=== PATIENT | female | born 1980 | race Two or more races ===

== ENCOUNTER 2024-11-06 11:16 | Outpatient (REF) | payer BC, SELFPAY ==
[2024-11-06 11:40] LABS: Basophils Percent Auto 0.5 % (0.2-2.0); Eosinophils Absolute Auto 0.2 10^3/uL (0.0-0.7); Eosinophils Percent Auto 5.6 % (0.9-7.0); Hematocrit 27.3 % (36.0-48.0); Hemoglobin 8.4 g/dL (12.0-16.0); Immature Granulocytes Abs Auto 0.01 10^3/uL (0.00-0.03); Immature Granulocytes Pct Auto 0.3 % (0.0-0.5); Lymphocytes Absolute Auto 1.4 10^3/uL (1.2-3.8); Lymphocytes Percent Auto 37.6 % (20.5-60.0); Mean Corpuscular HGB Conc 30.8 g/dL (29.9-35.2); Mean Corpuscular Hemoglobin 25.5 pg (26.7-34.0); Mean Corpuscular Volume 82.7 fL (81.0-99.0); Mean Platelet Volume 8.8 fL (9.5-13.5); Monocytes Absolute Auto 0.4 10^3/uL (0.3-0.8); Monocytes Percent Auto 11.6 % (1.7-12.0); Neutrophils Absolute Auto 1.7 10^3/uL (1.4-6.5); Neutrophils Percent Auto 44.4 % (43.0-75.0); Platelet Count 312 10^3/uL (150-450); Red Cell Distribution Width 13.2 % (11.0-15.0); White Blood Count 3.8 10^3/uL (4.0-11.0)
[2024-11-06 11:54] LABS: Alanine Aminotransferase 48 U/L (14-59); Estimated GFR (African America >60 (>=60 mL/min/1.73m^2); Estimated GFR (Non-African Ame >60 (>=60 mL/min/1.73m^2)
== END 2024-11-06 11:17 | disposition home or self-care (01) ==
LOC: LAB 11:16
DX: T81.49XA Infection following a procedure, other surgical site, initial encounter (principal)
CPT/HCPCS: 36415; 82565; 84460; 85025

== ENCOUNTER 2024-11-12 11:17 | Outpatient (REF) | payer BC, SELFPAY ==
[2024-11-12 11:53] LABS: Basophils Percent Auto 0.6 % (0.2-2.0); Eosinophils Absolute Auto 0.2 10^3/uL (0.0-0.7); Eosinophils Percent Auto 5.7 % (0.9-7.0); Hematocrit 28.7 % (36.0-48.0); Hemoglobin 8.6 g/dL (12.0-16.0); Lymphocytes Absolute Auto 1.4 10^3/uL (1.2-3.8); Lymphocytes Percent Auto 38.7 % (20.5-60.0); Mean Corpuscular Hemoglobin 24.4 pg (26.7-34.0); Mean Corpuscular Volume 81.5 fL (81.0-99.0); Mean Platelet Volume 9.2 fL (9.5-13.5); Monocytes Absolute Auto 0.5 10^3/uL (0.3-0.8); Monocytes Percent Auto 15.4 % (1.7-12.0); Neutrophils Absolute Auto 1.4 10^3/uL (1.4-6.5); Neutrophils Percent Auto 39.6 % (43.0-75.0); Platelet Count 312 10^3/uL (150-450); Red Blood Count 3.52 10^6/uL (4.20-5.40); Red Cell Distribution Width 13.1 % (11.0-15.0); White Blood Count 3.5 10^3/uL (4.0-11.0)
[2024-11-12 12:11] LABS: Alanine Aminotransferase 20 U/L (14-59); Estimated GFR (African America >60 (>=60 mL/min/1.73m^2); Estimated GFR (Non-African Ame >60 (>=60 mL/min/1.73m^2)
--- OUTSIDE RECORDS SUMMARY | 2024-11-15 14:59 | XMS_ITS | Clinical Summary ---
Author Organization [facility] Address [address] [place] [address] Care Team Providers Care Outside Machinist Name Role Phone Unallocated, Noms Provider Primary Care Provi lovely Social History Tobacco Use Types Packs/Day Years Used Date Smoking Tobacco: Never Assessed Comments Unknown Sex and Gender Information Value Date Recorded Sex Assigned at Not on file Legal Sex Female 7:11 PM EDT Gender Identity Not on file Sexual Orientation Not on file Last Filed Vital Signs Vital Sign Reading Time Taken Comments Blood Pressure 98/62 10/03/2020 12:00 PM EDT Pulse - - Temperature - - Respiratory Rate - - Oxygen Saturation - - Inhaled Oxygen Concentration - - Weight 65.4 kg (144 lb 3.2 oz) 10/03/2020 12:00 PM EDT Height 160 cm (5' 3 ) 10/03/2020 12:00 PM EDT Body Mass Index 25.54 10/03/2020 12:00 PM EDT Plan of Treatment Not on file Care Teams Outside Machinist Relationship Specialty Start Date End Date Unallocated, Noms [facility] [address] PCP - General Family Medicine 10/16/24
--- OUTSIDE RECORDS SUMMARY | 2024-11-15 15:00 | XMS_ITS | Clinical Summary ---
Author Organization [facility] Address [address] [place] [address] Phone Care Team Providers Care Planning Director Name Role Phone Unavailable Primary Care Provider Unavailabl e Social History Tobacco Use Types Packs/Day Years Used Date Smoking Tobacco: Never Assessed Comments Unknown Sex and Gender Information Value Date Recorded Sex Assigned at Not on file Legal Sex Female 6:14 PM EST Gender Identity Not on file Sexual Orientation Not on file Plan of Treatment Not on file
--- OUTSIDE RECORDS SUMMARY | 2024-11-15 15:00 | XMS_ITS | Encounter Summary ---
Author Organization [facility] Address [address] [place] [address] Phone Care Team Providers Care Health Record Technician Name Role Phone Unavailable Primary Care Provider Unavailabl e Encounter Details Date Type Department Care Team (Late st Contact Info) Description 10/10/2015 Orders Only [facility] [address] [place] [place] [address] Conversion, Onbase Social History Tobacco Use Types Packs/Day Years Used Date Smoking Tobacco: Never Assessed Comments Unknown Sex and Gender Information Value Date Recorded Sex Assigned at Not on file Legal Sex Female 6:14 PM EST Gender Identity Not on file Sexual Orientation Not on file documented as of this encounter Plan of Treatment Scheduled Orders Name Type Priority Associated Diagnoses Orde r Schedule OUTSIDE LAB SCAN Lab Ordered: 10/10/2015 documented as of this encounter Visit Diagnoses Not on filedocumented in this encounter
--- OUTSIDE RECORDS SUMMARY | 2024-11-15 15:00 | XMS_ITS | Encounter Summary ---
Author Organization [facility] Address [facility] [place] [address] Care Team Providers Care Exhibition Organiser Name Role Phone Unavailable Primary Care Provider Unavailabl e Source Comments In the event this information is protected by the Federal Confidentiality of Alcohol and Drug AbusePatient Records regulations: The Federal rules restrict any use of the information to criminally investigate or prosecute any alcohol or drug abuse patient.[facility] Reason for Visit * Reason Comments CoPat Management FOR IDC USE ONLY Encounter Details Date Type Department Care Team (Late st Contact Info) Description 10/19/2024 Telephone [facility] [address] [phone] Paramjit Odell MD [address] [phone] CoPat Management (FOR IDC USE ONLY) Social History Tobacco Use Types Packs/Day Years Used Date Smoking Tobacco: Never Assessed Area Deprivation Index Answer Date Santos rded National Score (1-100), lower number is lower ri sk Not on file 05/18/2020 State Score (1-10), lower number is lower risk N ot on file 05/18/2020 Data from: https://www.neighborhoodatlas.medicine.[facility].edu/. Last address used for calculation Not on file 05/18/2020 Comments Unknown Sex and Gender Information Value Date Recorded Sex Assigned at Not on file Legal Sex Female 9:58 AM EST Gender Identity Not on file Sexual Orientation Not on file documented as of this encounter Miscellaneous Notes * Telephone Encounter - Cait Del Rosario LPN - 11/12/2024 2:27 PM EDT November 12 labs reviewed, no changes The tubes were taken to [facility] lab The results were attached to the M drive * Telephone Encounter - Cait Del Rosario LPN - 11/06/2024 1:15 PM EDT November 06 labs reviewed, no changes The tubes were taken to [facility] lab The results were attached to the M drive * Telephone Encounter - Cait Del Rosario LPN - 10/29/2024 3:38 PM EDT October 29 labs reviewed, no changes The tubes were taken to [facility] lab The results were attached to the M drive * Telephone Encounter - Isela Mg RN - 10/19/2024 2:40 PM EDTSummary: COPAT ACTION-FOR IDC USE ONLY RS- CCOC DX: L SPINE MSSA TX: ANCEF 2GM IV Q8 EOT: 11-29-24 LABS: CBC/D ALT CREAT QMON FU: PRN . documented in this encounter Plan of Treatment Not on file documented as of this encounter Visit Diagnoses Not on filedocumented in this encounter
--- OUTSIDE RECORDS SUMMARY | 2024-11-15 15:00 | XMS_ITS | Encounter Summary ---
Author Organization [facility] Address [address] [place] [address] Phone Care Team Providers Care Film Historian Name Role Phone Unavailable Primary Care Provider Unavailabl e Encounter Details Date Type Department Care Team (Late st Contact Info) Description 10/15/2015 Orders Only [facility] [address] [place] [address] Conversion, Onbase Social History Tobacco Use Types [...] r Schedule OUTSIDE LAB SCAN Lab Ordered: 10/15/2015 documented as of this encounter Visit Diagnoses Not on filedocumented in this encounter
--- OUTSIDE RECORDS SUMMARY | 2024-11-15 15:00 | XMS_ITS | Clinical Summary ---
Author Organization [facility] Address [address] [place] [address] Care Team Providers Care Felled Seam Operator Chainstitch Name Role Phone Unavailable Primary Care Provider Unavailabl e Encounters Date Type Department Care Team Description 10/19/2024 Telephone [facility] [address] [phone] Paramjit Odell MD CoPat Management (FOR IDC USE ONLY) from Last 3 Months Social History Tobacco Use Types Packs/Day Years Used Date Smoking Tobacco: Never Assessed Area Deprivation Index Answer Date Santos rded National Score (1-100), lower number is lower ri sk Not on file 05/18/2020 State Score (1-10), lower number is lower risk N ot on file 05/18/2020 Data from: https://www.neighborhoodatlas.medicine.[facility].edu/. Last address used for calculation Not on file 05/18/2020 Comments Unknown Sex and Gender Information Value Date Recorded Sex Assigned at Not on file Legal Sex Female 9:58 AM EST Gender Identity Not on file Sexual Orientation Not on file Plan of Treatment Health Maintenance Due Date Last Done Comments Anxiety Screening 09/06/1999 Depression Screening 09/06/1999 HIV Screening 09/06/1999 Hepatitis C Screening 09/06/1999 DTaP,Tdap,Td Vaccine (1 - Tdap) 2000 Hepatitis B Vaccine (1 of 3 - 19+ 3-dose series) 09/05 Cervical Cancer Screening 2002 Mammogram Screening 2021 Covid-19 Vaccine ( - season) 2024 Influenza Vaccine (Season Ended) 2025 Insurance BLUE CARD PPO OOS
== END 2024-11-12 11:18 | disposition home or self-care (01) ==
LOC: LAB 11:17
DX: A49.02 Methicillin resistant Staphylococcus aureus infection, unspecified site (principal)
CPT/HCPCS: 36415; 82565; 84460; 85025

== ENCOUNTER 2024-11-19 11:04 | Outpatient (REF) | payer BC, SELFPAY ==
--- OUTSIDE RECORDS SUMMARY | 2024-11-19 11:14 | XMS_ITS | Encounter Summary ---
Author Organization [facility] Address [address] [place] [address] Phone Care Team Providers Care Residential Housekeeper Name Role Phone Unavailable Primary Care Provider Unavailabl e Encounter Details Date Type Department Care Team (Late st Contact Info) Description 10/15/2015 Orders Only [facility] [address] [place] [address] Conversion, Onbase Social History Tobacco Use Types [...]
--- OUTSIDE RECORDS SUMMARY | 2024-11-19 11:14 | XMS_ITS | Encounter Summary ---
Author Organization [facility] Address [facility] [place] [address] Care Team Providers Care Rapier Insertion Loom Fixer Name Role Phone Unavailable Primary Care Provider Unavailabl e Source Comments In the event this information is protected by the Federal Confidentiality of Alcohol and Drug AbusePatient Records regulations: The Federal rules restrict any use of the information to criminally investigate or prosecute any alcohol or drug abuse patient.[facility] Reason for Visit * Reason Comments CoPat Management FOR IDC USE ONLY Encounter Details Date Type Department Care Team (Late st Contact Info) Description 10/19/2024 Telephone [facility] [address] [phone] Paramjit Odell MD [address] [phone] CoPat Management (FOR IDC USE ONLY) Social History Tobacco Use Types Packs/Day Years Used Date Smoking Tobacco: Never Assessed Area Deprivation Index Answer Date Santos rded National Score (1-100), lower number is lower ri sk Not on file 05/18/2020 State Score (1-10), lower number is lower risk N ot on file 05/18/2020 Data from: https://www.neighborhoodatlas.medicine.[facility].edu/. Last address used for calculation [...] no changes The tubes were taken to [facility] lab The results were attached to the M drive * Telephone Encounter - Cait Del Rosario LPN - 11/06/2024 1:15 PM EDT November 06 labs reviewed, no changes The tubes were taken to [facility] lab The results were attached to the M drive * Telephone Encounter - Cait Del Rosario LPN - 10/29/2024 3:38 PM EDT October 29 labs reviewed, no changes The tubes were taken to [facility] lab The results were attached to the [...]
--- OUTSIDE RECORDS SUMMARY | 2024-11-19 11:14 | XMS_ITS | Clinical Summary ---
Author Organization [facility] Address [address] [place] [address] Phone Care Team Providers Care Senior Safety Management Consultant Name Role Phone Unavailable Primary Care Provider [...]
--- OUTSIDE RECORDS SUMMARY | 2024-11-19 11:14 | XMS_ITS | Encounter Summary ---
Author Organization [facility] Address [address] [place] [address] Phone Care Team Providers Care School Treasurer Name Role Phone Unavailable Primary Care Provider Unavailabl e Encounter Details Date Type Department Care Team (Late st Contact Info) Description 10/10/2015 Orders Only [facility] [address] [place] [address] Conversion, Onbase Social History Tobacco Use Types [...]
--- OUTSIDE RECORDS SUMMARY | 2024-11-19 11:14 | XMS_ITS | Clinical Summary ---
Author Organization [facility] Address [address] [place] [address] Care Team Providers Care Resident Care Manager Rn Name Role Phone Unavailable Primary Care Provider Unavailabl e Encounters Date Type Department Care Team Description 10/19/2024 Telephone [facility] [address] [phone] Paramjit Odell MD CoPat Management (FOR IDC USE ONLY) from Last 3 Months Social History Tobacco Use Types Packs/Day Years Used Date Smoking Tobacco: Never Assessed Area Deprivation Index Answer Date Santos rded National Score (1-100), lower number is lower ri sk Not on file 05/18/2020 State Score (1-10), lower number is lower risk N ot on file 05/18/2020 Data from: https://www.neighborhoodatlas.medicine.[facility].edu/. Last address used for calculation Not [...]
[2024-11-19 11:33] LABS: Basophils Percent Auto 0.7 % (0.2-2.0); Eosinophils Absolute Auto 0.2 10^3/uL (0.0-0.7); Eosinophils Percent Auto 6.8 % (0.9-7.0); Hematocrit 28.6 % (36.0-48.0); Hemoglobin 8.6 g/dL (12.0-16.0); Lymphocytes Absolute Auto 1.1 10^3/uL (1.2-3.8); Lymphocytes Percent Auto 39.2 % (20.5-60.0); Mean Corpuscular HGB Conc 30.1 g/dL (29.9-35.2); Mean Corpuscular Volume 79.7 fL (81.0-99.0); Mean Platelet Volume 9.2 fL (9.5-13.5); Monocytes Absolute Auto 0.4 10^3/uL (0.3-0.8); Monocytes Percent Auto 12.9 % (1.7-12.0); Neutrophils Absolute Auto 1.1 10^3/uL (1.4-6.5); Neutrophils Percent Auto 40.4 % (43.0-75.0); Platelet Count 295 10^3/uL (150-450); Red Blood Count 3.59 10^6/uL (4.20-5.40); White Blood Count 2.8 10^3/uL (4.0-11.0)
[2024-11-19 12:47] LABS: Alanine Aminotransferase 34 U/L (14-59); Estimated GFR (African America >60 (>=60 mL/min/1.73m^2); Estimated GFR (Non-African Ame >60 (>=60 mL/min/1.73m^2)
== END 2024-11-19 11:05 | disposition home or self-care (01) ==
LOC: LAB 11:04
PROVIDERS: Visit Provider Internal Medicine
DX: A49.02 Methicillin resistant Staphylococcus aureus infection, unspecified site (principal)
CPT/HCPCS: 36415; 82565; 84460; 85025

== ENCOUNTER 2024-11-26 10:04 | Outpatient (REF) | payer BC, SELFPAY ==
--- OUTSIDE RECORDS SUMMARY | 2024-11-26 10:11 | XMS_ITS | Encounter Summary ---
Author Organization [facility] Address [facility] [place] [address] Care Team Providers Care Mercantile Agent Name Role Phone Unavailable Primary Care Provider Unavailabl e Source Comments In the event this information is protected by the Federal Confidentiality of Alcohol and Drug AbusePatient Records regulations: The Federal rules restrict any use of the information to criminally investigate or prosecute any alcohol or drug abuse patient.[facility] Reason for Visit * Reason Comments CoPat Management FOR IDC USE ONLY Encounter Details Date Type Department Care Team (Late st Contact Info) Description 10/19/2024 Telephone [facility] [address] [phone] Paramjit Odell MD [address] [phone] CoPat Management (FOR IDC USE ONLY) Social History Tobacco Use Types Packs/Day Years Used Date Smoking Tobacco: Never Assessed Area Deprivation Index Answer Date Santos rded National Score (1-100), lower number is lower ri sk Not on file 05/18/2020 State Score (1-10), lower number is lower risk N ot on file 05/18/2020 Data from: https://www.neighborhoodatlas.medicine.[facility].edu/. Last address used for calculation [...] no changes The tubes were taken to [facility] lab The results were attached to the M drive * Telephone Encounter - Cait Del Rosario LPN - 11/06/2024 1:15 PM EDT November 06 labs reviewed, no changes The tubes were taken to [facility] lab The results were attached to the M drive * Telephone Encounter - Cait Del Rosario LPN - 10/29/2024 3:38 PM EDT October 29 labs reviewed, no changes The [facility] lab The results were attached to [...]
--- OUTSIDE RECORDS SUMMARY | 2024-11-26 10:11 | XMS_ITS | Encounter Summary ---
Author Organization [facility] Address [address] [place] [address] Phone Care Team Providers Care Terrazzo Grinder Name Role Phone Unavailable Primary Care Provider Unavailabl e Encounter Details Date Type Department Care Team (Late st Contact Info) Description 10/15/2015 Orders Only [facility] [address] [place] [address] Conversion, Onbase Social History Tobacco Use Types [...]
--- OUTSIDE RECORDS SUMMARY | 2024-11-26 10:11 | XMS_ITS | Clinical Summary ---
Author Organization [facility] Address [address] [place] [address] Care Team Providers Care Line Fixer Name Role Phone Unavailable Primary Care Provider Unavailabl e Encounters Date Type Department Care Team Description 10/19/2024 Telephone [facility] [address] [phone] Paramjit Odell MD CoPat Management (FOR IDC USE ONLY) from Last 3 Months Social History Tobacco Use Types Packs/Day Years Used Date Smoking Tobacco: Never Assessed Area Deprivation Index Answer Date Santos rded National Score (1-100), lower number is lower ri sk Not on file 05/18/2020 State Score (1-10), lower number is lower risk N ot on file 05/18/2020 Data from: https://www.neighborhoodatlas.medicine.[facility].edu/. Last address used for calculation Not [...]
--- OUTSIDE RECORDS SUMMARY | 2024-11-26 10:11 | XMS_ITS | Encounter Summary ---
Author Organization [facility] Address [address] [place] [address] Phone Care Team Providers Care Horse Rider Name Role Phone Unavailable Primary Care Provider Unavailabl e Encounter Details Date Type Department Care Team (Late st Contact Info) Description 10/10/2015 Orders Only [facility] [address] [place] [address] Conversion, Onbase Social History Tobacco Use Types [...]
--- OUTSIDE RECORDS SUMMARY | 2024-11-26 10:11 | XMS_ITS | Clinical Summary ---
Author Organization [facility] Address [address] [place] [address] Phone Care Team Providers Care Complaint Investigator Name Role Phone Unavailable Primary Care Provider [...]
[2024-11-26 10:38] LABS: Basophils Percent Auto 0.8 % (0.2-2.0); Eosinophils Absolute Auto 0.2 10^3/uL (0.0-0.7); Eosinophils Percent Auto 6.8 % (0.9-7.0); Hematocrit 28.5 % (36.0-48.0); Hemoglobin 8.6 g/dL (12.0-16.0); Lymphocytes Percent Auto 36.4 % (20.5-60.0); Mean Corpuscular HGB Conc 30.2 g/dL (29.9-35.2); Mean Corpuscular Hemoglobin 23.7 pg (26.7-34.0); Mean Corpuscular Volume 78.5 fL (81.0-99.0); Monocytes Absolute Auto 0.4 10^3/uL (0.3-0.8); Monocytes Percent Auto 15.2 % (1.7-12.0); Neutrophils Absolute Auto 1.1 10^3/uL (1.4-6.5); Neutrophils Percent Auto 40.8 % (43.0-75.0); Platelet Count 241 10^3/uL (150-450); Red Blood Count 3.63 10^6/uL (4.20-5.40); Red Cell Distribution Width 13.1 % (11.0-15.0); White Blood Count 2.6 10^3/uL (4.0-11.0)
[2024-11-26 10:45] LABS: Alanine Aminotransferase 24 U/L (14-59); Estimated GFR (African America >60 (>=60 mL/min/1.73m^2); Estimated GFR (Non-African Ame >60 (>=60 mL/min/1.73m^2)
== END 2024-11-26 10:05 | disposition home or self-care (01) ==
LOC: LAB 10:04
PROVIDERS: PCP Internal Medicine; Visit Provider Internal Medicine
DX: A49.01 Methicillin susceptible Staphylococcus aureus infection, unspecified site (principal)
CPT/HCPCS: 36415; 82565; 84460; 85025